=== PATIENT | male | born 1945 | race Caucasian/White ===

== ENCOUNTER 2016-09-11 21:10 | Emergency (ER) | payer MEDICARE, OTHER ==
[2016-09-11 21:26] VITALS: BP 122/78
--- NOTE | 2016-09-11 21:49 | EDM.PDOC ---
ED HPI Trauma - General Chief Complaint: Lower Extremity Injury/Pain Stated Complaint: LEG SWELLING Time Seen by Provider: 09/11/16 21:35 Source: Reports: Patient History Limitations: Reports: No limitations - History of Present Illness INITIAL COMMENTS - FREE TEXT/NARRATIVE: 71 yo male on both Plavix and ASA fell just after supper time today while either putting pants on or taking them off. He denies any pain after that fall. Hours later he noted that the left anterior knee is swollen. He is able to walk without pain. Had knee replacement on the right knee. His is worried that the swelling represents a "blood clot". Symptom Onset Date: 09/11/16 Symptom Onset Time: 18:30 Occurred When: this evening Occurred Where: home Method of Injury: fall Severity: mild Pain/Injury Location: Reports: lower extremity, left Consciousness: Reports: no loss of consciousness Associated Symptoms: Reports: denies other symptoms Allergies/ADRs: Allergies No Known Allergies Allergy (Verified 09/11/16 21:35) Home Medications: Ambulatory Orders Aspirin [Adult Low Dose Aspirin EC] 81 mg PO DAILY 05/22/13 [Confirmed 05/22/13] Atenolol [Tenormin] 25 mg PO DAILY 05/22/13 [Confirmed 05/22/13] Carbidopa/Levodopa [Sinemet 25-250 MG] 1 tab PO DAY 05/22/13 [Confirmed ] Cholecalciferol (Vitamin D3) [Vitamin D3] 2,000 unit PO 05/22/13 [Confirmed ] Citalopram Hydrobromide [Celexa] 40 mg PO 05/22/13 [Confirmed 05/22/13] Clopidogrel [Plavix] 75 mg PO DAILY 05/22/13 [Confirmed 05/22/13] Dextran 70/Hypromellose [Artificial Tears] 1 each OP 05/22/13 [Confirmed ] Docusate Sodium [Colace] 100 mg PO BID 05/22/13 [Confirmed 05/22/13] Enoxaparin [Lovenox] 30 mg SUBCUT BID 05/22/13 [Confirmed 05/22/13] Mirtazapine [Remeron] 15 mg PO DAILY 05/22/13 [Confirmed 05/22/13] Multivitamin [Multivitamins] 1 each PO 05/22/13 [Confirmed 05/22/13] Nitroglycerin [Nitrostat] 0.4 mg SL 05/22/13 [Confirmed 05/22/13] Sennosides/Docusate Sodium [Senna-Docusate Sodium] 1 each PO BID 05/22/13 [ Confirmed 05/22/13] Ubidecarenone/Vitamin E Mixed [Coenzyme Q10 200 MG] 1 each PO 05/22/13 [ Confirmed 05/22/13] atorvaSTATin [Lipitor] 40 mg PO DAILY 05/22/13 [Confirmed 05/22/13] Acetaminophen/HYDROcodone [Brinklow 325-5 MG] 1 tab PO Q4H PRN #20 tablet 05/27/13 Past Medical History Cardiovascular History: Reports: Stents Neurological History: Reports: Parkinson's - Past Surgical History Cardiovascular Surgical History: Reports: Coronary artery stent Social & Family History - Tobacco Use Smoking Status *Q: Never Smoker Second Hand Smoke Exposure: No - Caffeine Use Caffeine Use: Reports: Coffee, Tea - Alcohol Use Days Per Week of Alcohol Use: 5 Number of Drinks Per Day: 2 Total Drinks Per Week: 10 - Recreational Drug Use Recreational Drug Use: No Review of Systems - Review of Systems Review Of Systems: See Below Constitutional: Reports: no symptoms Respiratory: Reports: No Symptoms Cardiovascular: Reports: no symptoms GI/Abdominal: Reports: No symptoms Musculoskeletal: Reports: joint swelling (swelling L anterior knee.) Skin: Reports: no symptoms Neurological: Reports: No Symptoms Trauma Exam - Physical Exam Exam: See Below Exam Limited By: No limitations General Appearance: Reports: alert, WD/WN, no apparent distress Head: Reports: atraumatic, normocephalic Back: Reports: full range of motion Extremities: Reports: normal range of motion, non-tender, other (swelling to L knee limited to over the patella. Thickened skin over both knees from frequent kneeling. Prepatellar swelling present ? inflammatory vs. traumatic(no increase in warmth). ). Denies: bony-point tenderness, joint effusion, pain with movement, pedal edema, tenderness, unable to bear weight Neurologic: Reports: no motor/sensory deficits, normal mood/affect, oriented x 3 Skin: Reports: Normal color, Warm/dry Course - Vital Signs Last Recorded V/S: Last Vital Signs Temp 36.8 C 09/11/16 21:20 Pulse 77 09/11/16 21:20 Resp 18 09/11/16 21:20 BP 122/78 09/11/16 21:20 Pulse Ox 94 L 09/11/16 21:20 Departure - Departure Time of Disposition: 21:49 Disposition: Home, Self-Care 01 Condition: good Clinical Impression: Prepatellar bursitis Qualifiers: Laterality: left Qualified Code(s): M70.42 - Prepatellar bursitis, left knee Referrals: Tio Adhikari MD [Primary Care Provider] - Forms: ED Department Discharge Care Plan Goals: Acetaminophen as needed for pain relief. Apply cold compresses to area. No kneeling. Recheck in the clinic as needed.
== END 2016-09-11 21:50 | disposition home or self-care (01) ==
LOC: FB.ED 21:10
DX: M70.42 Prepatellar bursitis, left knee (principal)
CPT/HCPCS: 99282

== ENCOUNTER 2019-06-30 06:43 | Day surgery (SDC) | payer MEDICARE, OTHER ==
[2019-06-30] MEDS ORDERED: Midazolam 1 MG/ML 2 ML SDV IV ONE (06:44)
[2019-06-30] MEDS ORDERED: fentaNYL 100 MCG/2 ML SDV IV ONE (06:44)
[2019-06-30] MEDS ORDERED: Sodium Chloride 0.9% 10 ML Syringe FLUSH PRN (06:45)
[2019-06-30] MEDS: Lactated Ringers 1,000 ML IV SCH (07:09)
[2019-06-30] MEDS: acetaZOLAMIDE 500 MG Cap.ER PO ONE (08:51)
[2019-06-30 09:09] VITALS: BP 122/84; PULSE 64
--- NOTE | 2019-06-30 15:48 | OR ---
DATE OF OPERATION: 06/30/2019 SURGEON: Patti Santamaria MD PREOPERATIVE DIAGNOSIS: Visually significant cataract, right eye. POSTOPERATIVE DIAGNOSIS: Visually significant cataract, right eye. PROCEDURES PERFORMED: Phacoemulsification with intraocular lens placement, right eye. 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 ANESTHESIA: Local with sedation. COMPLICATIONS: Tear in the posterior capsule. BLOOD LOSS: None. IMPLANTS: An Shailesh [id number] 22.0 diopter lens implanted. CDE: 2.68. DESCRIPTION OF PROCEDURE: After risks and benefits were reviewed with the patient, consent was obtained in the preoperative area, and the operative eye was marked with a surgical pen. In the preoperative area, a pledget was used to dilate the pupil consisting of a mixture of phenylephrine 10%, cyclopentolate 2%, moxifloxacin 0.5%, and bupivacaine 0.75%. The patient was taken to the operating room where a time-out was performed, and the patient was placed under monitored anesthesia care. Topical tetracaine was used for additional anesthesia. The operative eye was prepped and draped for ophthalmic surgery, and the microscope was brought into position and focussed. A paracentesis incision was made, followed by injection of preservative-free 1% lidocaine into the anterior chamber, followed by injection of Viscoat into the anterior chamber. A microkeratome blade was used to make a corneal limbal incision temporarily. A cystotome was used to make the beginning of a capsulorrhexis, which was carried out 360 degrees in a curvilinear fashion by Utrata forceps. A Coto cannula with BSS was used to hydrodissect and hydro-delineate the nucleus. The nucleus was removed in a divide and conquer manner using phacoemulsification. Irrigation and aspiration were used to remove the remaining cortical material. During this time, it was noted that there was a small tear in the posterior capsule. The decision was then made to use a 3- piece lens at this time. Provisc was used to inflate the capsular bag and anterior chamber. An MN60AC 22.0 diopter lens, serial number [id number] was injected using a Swapferit shooter with the haptics into the sulcus, and the optic was then captured by the anterior capsule. A Weck-Hui sponge was used to remove any vitreous from the wound. Irrigation and aspiration was used to carefully remove any Provisc and Viscoat from the anterior chamber. One 10-0 nylon suture was used to close the incision. The knot was rotated and buried. The patient received intracameral injection of moxifloxacin 1 mg. the patient's drapes were removed, and the eye was cleansed and shielded. The patient was taken to Recovery in stable condition. /[id number]/SRINIVASA CC: SAMUEL HERNADNEZ MD MTDD
== END 2019-06-30 09:33 | disposition home or self-care (01) ==
LOC: FB.SDS 06:43
PROVIDERS: ATTEND Ophthalmology
DX: E11.36 Type 2 diabetes mellitus with diabetic cataract (principal); H25.13 Age-related nuclear cataract, bilateral; H02.836 Dermatochalasis of left eye, unspecified eyelid; H02.833 Dermatochalasis of right eye, unspecified eyelid; H52.203 Unspecified astigmatism, bilateral; H59.211 Accidental puncture and laceration of right eye and adnexa during an ophthalmic procedure; I10 Essential (primary) hypertension; E78.5 Hyperlipidemia, unspecified; G20 Parkinson's disease; F33.0 Major depressive disorder, recurrent, mild; I25.10 Atherosclerotic heart disease of native coronary artery without angina pectoris; M19.90 Unspecified osteoarthritis, unspecified site; G89.29 Other chronic pain; M54.5 Low back pain; Z79.84 Long term (current) use of oral hypoglycemic drugs; Z79.82 Long term (current) use of aspirin; Z79.02 Long term (current) use of antithrombotics/antiplatelets; Z79.899 Other long term (current) drug therapy
CPT/HCPCS: 00142-QZ; 82962; A9270-GY; J2250; J3010; J7120

== ENCOUNTER 2019-07-28 06:40 | Day surgery (SDC) | payer MEDICARE, OTHER ==
[2019-07-28] MEDS ORDERED: Midazolam 1 MG/ML 2 ML SDV IV ONE (06:41)
[2019-07-28] MEDS ORDERED: fentaNYL 100 MCG/2 ML SDV IV ONE (06:41)
[2019-07-28] MEDS ORDERED: Lactated Ringers 1,000 ML IV SCH (06:45)
[2019-07-28] MEDS ORDERED: acetaZOLAMIDE 500 MG Cap.ER PO ONE (08:30)
[2019-07-28 08:52] VITALS: PULSE 65
--- NOTE | 2019-07-28 14:38 | OR ---
DATE OF OPERATION: 07/28/2019 SURGEON: Patti Santamaria MD PREOPERATIVE DIAGNOSIS: Visually significant cataract, left eye. POSTOPERATIVE DIAGNOSIS: Visually significant cataract, left eye. PROCEDURES PERFORMED: Phacoemulsification with intraocular lens placement, left eye. ASSISTANTS: None. ANESTHESIA: Local with sedation. COMPLICATIONS: None. BLOOD LOSS: None. IMPLANTS: An Shailesh [id number], 21.5 diopter lens, serial number [id number] implanted. CDE: 2.86. DESCRIPTION OF PROCEDURE: After risks and benefits were reviewed with the patient, consent was obtained in the preoperative area, and the operative eye was marked with a surgical pen. In the preoperative area, a pledget was used to dilate the pupil consisting of a mixture of phenylephrine 10%, cyclopentolate 2%, moxifloxacin 0.5%, and bupivacaine 0.75%. The patient was taken to the operating room, where a time-out was performed, and the patient was placed under monitored anesthesia care. Topical tetracaine was used for anesthesia. The operative eye was prepped and draped for ophthalmic surgery, and the microscope was brought into position and focused. A paracentesis incision was made, followed by injection of preservative-free 1% lidocaine into the anterior chamber, followed by injection of Viscoat into the anterior chamber. A microkeratome blade was used to make a corneal limbal incision temporally. A cystotome was used to make the beginning of the capsulorrhexis, which was carried around 360 degrees in a curvilinear fashion using Utrata forceps. A Coto cannula with BSS was used to hydrodissect and hydrodelineate the nucleus. The nucleus was removed in a divide and conquer manner using phacoemulsification. Irrigation and aspiration were used to remove the remaining cortical material. Provisc was used to inflate the capsular bag, and a pre-loaded 21.5 diopter lens, serial number [id number] was injected into the capsular bag. A Sinskey hook was used to position and center the lens. Next, irrigation and aspiration was used to remove any remaining viscoelastic and cortical material from the anterior chamber. BSS on a cannula was used to inflate the anterior chamber and hydrate the wound. The wound was checked and found to be watertight. 1 mg of Moxifloxacin was injected into the anterior chamber. Drapes were removed and the eye was cleaned. A drop of brimonidine 0.15% and a drop of TobraDex was placed. The eye was shielded, and the patient was taken to the recovery room in stable condition. /[id number] DESTINEY/UMAL CC: SAMUEL HERNANDEZ MD MTDD
== END 2019-07-28 09:02 | disposition home or self-care (01) ==
LOC: FB.SDS 06:40
PROVIDERS: ATTEND Ophthalmology
DX: H25.13 Age-related nuclear cataract, bilateral (principal); H02.836 Dermatochalasis of left eye, unspecified eyelid; H02.833 Dermatochalasis of right eye, unspecified eyelid; H52.203 Unspecified astigmatism, bilateral; I10 Essential (primary) hypertension; I25.10 Atherosclerotic heart disease of native coronary artery without angina pectoris; E78.5 Hyperlipidemia, unspecified; G20 Parkinson's disease; F32.9 Major depressive disorder, single episode, unspecified; M19.90 Unspecified osteoarthritis, unspecified site; Z79.84 Long term (current) use of oral hypoglycemic drugs; Z79.899 Other long term (current) drug therapy; Z79.02 Long term (current) use of antithrombotics/antiplatelets
CPT/HCPCS: 00142; 66984; 82962; A9270; J2250; J3010; J7120; V2632

== ENCOUNTER 2024-01-19 22:48 | Emergency (ER) | payer MEDICARE, OTHER ==
[2024-01-19] MEDS ORDERED: Lidocaine 1% with EPINEPHrine 1:100,000 20 ML MDV INFILT ONE (22:49)
[2024-01-19 22:58] VITALS: BP 135/67; PULSE 78
[2024-01-20] MEDS: Diphtheria,Pertussis(Acell),Tetanus Vaccine 0.5 ML Syringe IM ONE (00:27)
[2024-01-20] MEDS: Bacitracin Oint 1 GM U/D Packet TOP ONE (00:30)
== END 2024-01-20 00:50 | disposition home or self-care (01) ==
LOC: FB.ED 22:48
DX: S22.42XA Multiple fractures of ribs, left side, initial encounter for closed fracture (principal); S01.81XA Laceration without foreign body of other part of head, initial encounter; Z23 Encounter for immunization; I10 Essential (primary) hypertension; Z79.84 Long term (current) use of oral hypoglycemic drugs; Z79.899 Other long term (current) drug therapy; Z90.49 Acquired absence of other specified parts of digestive tract; W01.198A Fall on same level from slipping, tripping and stumbling with subsequent striking against other object, initial encounter
CPT/HCPCS: 12013; 70450; 71101-LT; 72125; 90471; 90715; 99285-25

== ENCOUNTER 2024-01-20 07:23 | Emergency (ER) | payer MEDICARE, OTHER | END 2024-01-20 08:40 | disposition home or self-care (01) | LOC: FB.ED 07:23 | DX: S01.81XA Laceration without foreign body of other part of head, initial encounter (principal); R58 Hemorrhage, not elsewhere classified; Z79.01 Long term (current) use of anticoagulants; I10 Essential (primary) hypertension; E78.00 Pure hypercholesterolemia, unspecified; E11.9 Type 2 diabetes mellitus without complications; Z79.82 Long term (current) use of aspirin; Z79.899 Other long term (current) drug therapy; Z90.49 Acquired absence of other specified parts of digestive tract; W01.0XXA Fall on same level from slipping, tripping and stumbling without subsequent striking against object, initial encounter | CPT/HCPCS: 99282 ==

== ENCOUNTER 2024-02-03 13:09 | Inpatient (IN) | payer MEDICARE, OTHER ==
[2024-02-03 13:42] LABS: BASOPHILS PERCENT AUTO 0.2 % (0.3-3.8); EOSINOPHILS ABSOLUTE AUTO 0.1 x10-3/uL (0.0-0.6); EOSINOPHILS PERCENT AUTO 1.3 % (0.1-6.8); HEMATOCRIT 36.5 % (38.3-50.1); HEMOGLOBIN 12.2 g/dL (12.9-17.7); LYMPHOCYTES ABSOLUTE AUTO 0.6 x10-3/uL (0.5-4.5); LYMPHOCYTES PERCENT AUTO 6.6 % (15.8-45.3); MEAN CORPUSCULAR HEMOGLOBIN 32.5 pg (27.0-33.3); MEAN CORPUSCULAR HGB CONC 33.5 g/dL (28.7-35.3); MEAN CORPUSCULAR VOLUME 96.9 fL (80.8-98.7); MEAN PLATELET VOLUME 8.3 fL (6.7-11.0); MONOCYTES ABSOLUTE AUTO 0.6 x10-3/uL (0.0-1.2); MONOCYTES PERCENT AUTO 7.4 % (5.5-15.2); NEUTROPHILS PERCENT AUTO 84.5 % (40.3-71.8); PLATELET COUNT,PLT 238 x10(3)uL (117-477); RED BLOOD CELL COUNT 3.77 x10(6)uL (3.90-5.90); RED CELL DISTRIBUTION WIDTH 12.8 % (12.4-15.0); WHITE BLOOD CELL COUNT,WBC 8.3 x10-3/uL (3.2-10.1)
[2024-02-03 13:49] LABS: BLOOD UREA NITROGEN,BUN 20 mg/dL (7-18); BUN/CREATININE RATIO 18.2 (9-20); CALCIUM 8.5 mg/dL (8.6-10.2); CARBON DIOXIDE,CO2 27 mmol/L (21-32); CHLORIDE,CL 105 mmol/L (100-110); CREATININE 1.1 mg/dL (0.70-1.30); ESTIMATED GFR 68 mL/min (>60); GLUCOSE RANDOM 119 mg/dL (80-116); POTASSIUM,K 4.5 mmol/L (3.5-5.3); SODIUM,NA 143 mmol/L (135-145)
[2024-02-03 14:03] LABS: ALANINE AMINOTRANSFERASE,ALT 7 U/L (12-36); ALBUMIN 3.3 g/dL (3.2-4.6); ALKALINE PHOSPHATASE 105 IU/L (56-112); ASPARTATE AMNIOTRANSFERASE,AST 15 IU/L (5-25); BILIRUBIN TOTAL 0.6 mg/dL (0.1-1.3); PROTEIN TOTAL,TP 6.5 g/dL (6.0-8.0)
[2024-02-03] MEDS: Sodium Chloride 0.9% 1,000 ML IV SCH (14:15)
[2024-02-03] MEDS ORDERED: Ibuprofen 600 MG Tab PO PRN (15:41)
[2024-02-03] MEDS ORDERED: Ondansetron 4 MG/2 ML SDV IV PRN (15:41)
[2024-02-03] MEDS ORDERED: Glucagon,Human Recombinant 1 MG Vial IM PRN (15:48)
[2024-02-03] MEDS ORDERED: 50% Dextrose in Water 50 ML Syringe IVPUSH PRN (15:48)
[2024-02-03] MEDS: Insulin Lispro 100 Unit/ML 3 ML KwikPen SUBCUT SCH (17:57)
[2024-02-03] MEDS: Enoxaparin 30 MG/0.3 ML Syringe SUBCUT SCH (18:18)
[2024-02-03] MEDS: VANCOmycin 1.25 GM/250 ML 1.25 GM in Premix Bag 1 BAG IV SCH ×2 (18:49→21:13)
[2024-02-03] MEDS: Carbidopa/Levodopa 25-100 MG Tab PO SCH ×2 (21:13→21:53)
[2024-02-03] MEDS: Saccharomyces Boulardii (Probiotic) 250 MG Cap PO SCH (21:53)
[2024-02-03] MEDS: Topiramate 50 MG Tab PO SCH (21:55)
[2024-02-03] MEDS: atorvaSTATin 40 MG Tab PO SCH (22:01)
[2024-02-04] MEDS: Sodium Chloride 0.9% 1,000 ML IV SCH (01:57)
[2024-02-04 06:37] LABS: BASOPHILS PERCENT AUTO 0.3 % (0.3-3.8); EOSINOPHILS ABSOLUTE AUTO 0.1 x10-3/uL (0.0-0.6); EOSINOPHILS PERCENT AUTO 1.8 % (0.1-6.8); HEMATOCRIT 38.3 % (38.3-50.1); HEMOGLOBIN 12.6 g/dL (12.9-17.7); LYMPHOCYTES PERCENT AUTO 18.2 % (15.8-45.3); MEAN CORPUSCULAR HEMOGLOBIN 32.2 pg (27.0-33.3); MEAN CORPUSCULAR VOLUME 97.7 fL (80.8-98.7); MEAN PLATELET VOLUME 8.5 fL (6.7-11.0); MONOCYTES ABSOLUTE AUTO 0.5 x10-3/uL (0.0-1.2); MONOCYTES PERCENT AUTO 9.2 % (5.5-15.2); NEUTROPHILS PERCENT AUTO 70.5 % (40.3-71.8); PLATELET COUNT,PLT 215 x10(3)uL (117-477); RED BLOOD CELL COUNT 3.92 x10(6)uL (3.90-5.90); RED CELL DISTRIBUTION WIDTH 12.7 % (12.4-15.0); WHITE BLOOD CELL COUNT,WBC 5.6 x10-3/uL (3.2-10.1)
[2024-02-04 06:41] LABS: BLOOD UREA NITROGEN,BUN 14 mg/dL (7-18); CALCIUM 8.2 mg/dL (8.6-10.2); CARBON DIOXIDE,CO2 30 mmol/L (21-32); CHLORIDE,CL 110 mmol/L (100-110); CREATININE 0.7 mg/dL (0.70-1.30); EST CRCL DRUG DOSING (CG) 73.21 mL/min; ESTIMATED GFR 93 mL/min (>60); GLUCOSE RANDOM 104 mg/dL (80-116); POTASSIUM,K 4.1 mmol/L (3.5-5.3); SODIUM,NA 145 mmol/L (135-145)
[2024-02-04] MEDS: Clopidogrel 75 MG Tab PO SCH (09:04)
[2024-02-04] MEDS: Citalopram 20 MG Tab PO SCH (09:04)
[2024-02-04] MEDS: Atenolol 25 MG Tab PO SCH (09:05)
[2024-02-04] MEDS: Aspirin 81 MG Tab.Chew PO SCH (09:07)
[2024-02-04] MEDS: Carbidopa/Levodopa 25-100 MG Tab PO SCH (10:52)
[2024-02-04] MEDS ORDERED: Insulin Lispro 100 Unit/ML 3 ML KwikPen SUBCUT ONE (14:39)
[2024-02-04 15:26] VITALS: BP 123/82; PULSE 67
== END 2024-02-04 14:40 | disposition home or self-care (01) | DRG 565 ==
LOC: FB.ED 13:09 → FB.MS 15:41 → UNDOADMIN 16:04 → UNDODISIN 02-04 14:40
PROVIDERS: ADMIT Family Medicine; ATTEND Family Medicine
PROC: 0S9D3ZX Drainage of Left Knee Joint, Percutaneous Approach, Diagnostic (ICD-10-PCS; principal; 2024-02-03)
DX: M25.462 Effusion, left knee (principal); E87.20 Acidosis, unspecified; M17.12 Unilateral primary osteoarthritis, left knee; S89.92XA Unspecified injury of left lower leg, initial encounter; G20.A1 Parkinson's disease without dyskinesia, without mention of fluctuations; Z95.1 Presence of aortocoronary bypass graft; E11.9 Type 2 diabetes mellitus without complications; H54.7 Unspecified visual loss; E78.00 Pure hypercholesterolemia, unspecified; I10 Essential (primary) hypertension; W03.XXXA Other fall on same level due to collision with another person, initial encounter; M54.9 Dorsalgia, unspecified; G89.29 Other chronic pain; F32.A Depression, unspecified; Z96.659 Presence of unspecified artificial knee joint; W01.0XXA Fall on same level from slipping, tripping and stumbling without subsequent striking against object, initial encounter; I25.10 Atherosclerotic heart disease of native coronary artery without angina pectoris; Z79.02 Long term (current) use of antithrombotics/antiplatelets; Z79.899 Other long term (current) drug therapy; Z79.82 Long term (current) use of aspirin; Z79.84 Long term (current) use of oral hypoglycemic drugs; Z95.5 Presence of coronary angioplasty implant and graft; Z98.49 Cataract extraction status, unspecified eye; Z90.49 Acquired absence of other specified parts of digestive tract
CPT/HCPCS: 36415; 73700-LT; 80048; 80053; 83605; 85025; 85651; 86140; 87040; 87070; 87205; 88173-26; 89051; 97161-GP; 97165-GO; 99222; 99238; 99285; A9270-GY; J1650; J1815; J3372; J7030